=== PATIENT | female | born 1985 | race African-American/Black ===

== ENCOUNTER 2020-03-14 17:15 | Emergency (ER) | payer MEDICAID ==
--- NOTE | 2020-03-14 17:58 | ER Document Report ---
ED Medical Screen (RME) - General Chief Complaint: Bloody Stools Stated Complaint: BLOOD IN STOOLS Time Seen by Provider: 03/14/20 17:50 Mode of Arrival: Ambulatory Information source: Patient Notes: 34-year-old female presents to ED for complaint of bloody stools at home this afternoon. She states that in August 2016 they had to put a clip on 1 of the arteries of her colon. They said that the artery had ruptured so they had to put a clip on it. They state the reason the operatively ruptured was because she has been taking too much Tylenol and ibuprofen. She is now 21 weeks 3 days with her first child. She is high risk due to this clip on her:. According to the patient and the baby's father there was dark red blood that dripped and was in the stool. She states she is not having any pain or any discomfort at this time. She does have high blood pressure and sleep apnea. She states she does not smoke cigarettes or use alcohol and but she does use marijuana. She is alert oriented respirations regular nonlabored speaking in full sentences. She is very morbidly obese at 136.8 kg and a BMI of 58.9. I have greeted and performed a rapid initial assessment of this patient. A comprehensive ED assessment and evaluation of the patient, analysis of test results and completion of medical decision making process will be conducted by an additional ED providers. Physical Exam - Vital signs Vitals: Temp Pulse Resp BP Pulse Ox 98.8 F 95 20 174/84 H 99 03/14/20 17:22 03/14/20 17:22 03/14/20 17:22 03/14/20 17:22 03/14/20 17:22 Course - Vital Signs Vital signs: Temp Pulse Resp BP Pulse Ox 98.8 F 95 20 174/84 H 99 03/14/20 17:22 03/14/20 17:22 03/14/20 17:22 03/14/20 17:22 03/14/20 17:22
[2020-03-14 19:04] LABS: ABSOLUTE EOSINOPHILS # (AUTO) 0.1 10^3/uL (0.0-0.6); ABSOLUTE LYMPHOCYTES (AUTO) 1.4 10^3/uL (0.5-4.7); ABSOLUTE MONOCYTES (AUTO) 0.7 10^3/uL (0.1-1.4); ABSOLUTE NEUT (AUTO) 10.1 10^3/uL (1.7-8.2); BASOPHILS % (AUTO) 0.3 % (0-2); EOSINOPHILS % (AUTO) 0.9 % (0-6); HEMATOCRIT 28.4 % (36.0-47.0); LYMPHOCYTES % (AUTO) 11.2 % (13-45); MEAN CORPUSCULAR HEMOGLOBIN 22.7 pg (27.0-33.4); MEAN CORPUSCULAR HGB CONC 31.8 g/dL (32.0-36.0); MEAN CORPUSCULAR VOLUME 72 fl (80-97); MONOCYTES % (AUTO) 5.6 % (3-13); PLATELET COUNT 236 10^3/uL (150-450); RED BLOOD COUNT 3.98 10^6/uL (3.72-5.28); RED CELL DISTRIBUTION WIDTH 24.4 % (11.5-14.0); TOTAL CELLS COUNTED % (AUTO) 100 %; WHITE BLOOD COUNT 12.3 10^3/uL (4.0-10.5)
[2020-03-14 19:14] LABS: APPEARANCE,URINE SLIGHTLY-CLOUDY; BILIRUBIN,URINE NEGATIVE (NEGATIVE); COLOR,URINE YELLOW; GLUCOSE, URINE NEGATIVE (NEGATIVE); KETONES,URINE TRACE mg/dL (NEGATIVE); LEUKOCYTE ESTERASE,URINE NEGATIVE (NEGATIVE); NITRITE,URINE NEGATIVE (NEGATIVE); PROTEIN,URINE 30 mg/dL (NEGATIVE); URINE SPECIFIC GRAVITY 1.028
[2020-03-14 19:17] LABS: ALBUMIN 3.3 g/dL (3.5-5.0); ALKALINE PHOSPHATASE 78 U/L (38-126); ANION GAP 7 (5-19); ASPARTATE AMINO TRANSFERASE 17 U/L (14-36); BILIRUBIN,DIRECT 0.2 mg/dL (0.0-0.4); BILIRUBIN,TOTAL 0.2 mg/dL (0.2-1.3); BLOOD UREA NITROGEN 13 mg/dL (7-20); CALCIUM 9.2 mg/dL (8.4-10.2); CARBON DIOXIDE 22 mmol/L (22-30); CHLORIDE 104 mmol/L (98-107); GLUCOSE 104 mg/dL (75-110); POTASSIUM 4.6 mmol/L (3.6-5.0); TOTAL PROTEIN 6.4 g/dL (6.3-8.2)
[2020-03-14 19:24] LABS: ANISOCYTOSIS 3+; HYPOCHROMASIA 1+; OVALOCYTES SLIGHT; PLATELET COMMENT ADEQUATE; POIKILOCYTOSIS SLIGHT
--- NOTE | 2020-03-14 21:33 | ER Document Report ---
ED General - General Chief Complaint: Bloody Stools Stated Complaint: BLOOD IN STOOLS Time Seen by Provider: 03/14/20 17:50 Mode of Arrival: Ambulatory Notes: 34-year-old female G1, P0 approximately 21 weeks gestational age history of hypertension hyperlipidemia morbid obesity and prior lower GI bleed presents with approximately 3 episodes of bright red blood per rectum prior to arrival over the last several hours. Patient says that she has similar episode approximately 3 years ago and had lower endoscopy at outside hospital and was found to have a "bleeding blood vessel "which was surgically clipped. Patient has not had any episodes since then. Patient says that this was attributed to NSAID use. Patient felt mildly lightheaded when symptoms began but this has resolved. Patient has been seeing several OB/GYNs and is [facility] and with Dr. Sims (sp?) for her current . Patient takes ASA 81 daily, denies any other antiplatelet or anticoagulation. Patient denies any syncope, melena, vomiting/hematemesis, abdominal pain, trauma, fever, complications, vaginal bleeding - Related Data Allergies/Adverse Reactions: No Known Allergies Allergy (Verified 03/14/20 18:00) Past Medical History - General Information source: Patient - Social History Smoking Status: Never Smoker Chew tobacco use (# tins/day): No Frequency of alcohol use: None Drug Abuse: Marijuana Family History: Reviewed & Not Pertinent Patient has homicidal ideation: No - Past Medical History Cardiac Medical History: Reports: Hx Hypertension Past Surgical History: Reports: Hx Abdominal Surgery - gi clip in colon in 2017 Review of Systems - Review of Systems Notes: REVIEW OF SYSTEMS: CONSTITUTIONAL : Denies fever, chills, or sweats. EENT: Denies recent cold/sinus symptoms, denies throat pain CARDIOVASCULAR: Denies chest pain, DIALLO RESPIRATORY: Denies cough, denies shortness of breath. GASTROINTESTINAL: Denies abdominal pain, nausea/vomiting. GENITOURINARY: Denies difficulty urinating, painful urination. FEMALE GENITOURINARY: Denies abnormal vaginal bleeding, vaginal discharge. MUSCULOSKELETAL: Denies neck pain, back pain. SKIN: Denies rash or skin lesions. HEMATOLOGIC : Denies easy bruising or bleeding. LYMPHATIC: Denies swollen, enlarged glands. NEUROLOGICAL: Denies headache, denies change in gait. PSYCHIATRIC: Denies anxiety or stress or depression. Physical Exam - Vital signs Vitals: Temp Pulse Resp BP Pulse Ox 98.8 F 95 20 174/84 H 99 03/14/20 17:22 03/14/20 17:22 03/14/20 17:22 03/14/20 17:22 03/14/20 17:22 - Notes Notes: PHYSICAL EXAMINATION: GENERAL: Obese young adult female lying in stretcher in no acute distress HEAD: Atraumatic, normocephalic. EYES: Pupils equal round and appropriate constriction, sclera anicteric, conjunctiva are normal. ENT: nares patent, moist mucous membranes. NECK: Normal range of motion, supple without lymphadenopathy LUNGS: Breath sounds clear to auscultation bilaterally and equal. No wheezes rales or rhonchi. HEART: Regular rate and rhythm without murmurs ABDOMEN: Soft, nontender, no guarding, no masses, no CVAT. bedside ultrasound with positive movement and heart tones. Rectal exam with dark red blood low volume. EXTREMITIES: Normal range of motion, no pitting or edema. No cyanosis. NEUROLOGICAL: Awake, alert, conversing appropriately, moves all extremities spontaneously. PSYCH: Normal mood, normal affect. SKIN: Warm, Dry, normal turgor, no rashes or lesions noted. Course - Re-evaluation Re-evalutation: 03/14/20 21:44 patient presents with lower GI bleeding, and had approximately 500 normal stool in the ED but otherwise has been stable, one episode of bright red blood per rectum for 4 hours of being in the ED so far. Discussed with Dr. Corral who says that he is likely to observe patient and will be available to scope if patient becomes unstable. Discussed this with Dr. Johns who is accepted patient to medical floor. 03/14/20 23:32 Pt now having additional episodes of brbpr, BP dropped, Dr. Corral says pt needs transfer, have called [facility] who say they have no capability to take care of this patient, have called [facility] and am waiting for call back, have also called [facility] and am waiting for response. Requested that nurse transfuse 2U PRBCs uncrossed and set up for introducer catheter 03/14/20 23:39 Patient accepted by ICU iron carrier Dr[facility]. Blood pressure has improved. 03/15/20 02:43 Patient had several more episodes of bloody stool in ED, was given 2 units of uncrossed matched blood, repeated and all vitals remained stable, attempted once to do right IJ introducer but unable to obtain access secondary to extreme variable location of IJ with patient respiration and patient habitus and did not reattempt as patient was going to be transported to [facility] and [facility] and vital signs remained stable. Patient picked up by ALS cranial and remained appropriate for transport with stable vitals. - Vital Signs Vital signs: Temp Pulse Resp BP Pulse Ox 97.7 F 75 24 H 113/61 100 03/15/20 02:03 03/15/20 02:01 03/15/20 02:10 03/15/20 02:10 03/15/20 02:10 - Laboratory Result Diagrams: 03/14/20 18:35 03/14/20 18:35 Laboratory results interpreted by me: 03/14/20 03/14/20 03/14/20 18:35 18:35 18:35 WBC 12.3 H Hgb 9.0 L Hct 28.4 L MCV 72 L MCH 22.7 L MCHC 31.8 L RDW 24.4 H Lymph % (Auto) 11.2 L Absolute Neuts (auto) 10.1 H Seg Neutrophils % 82.0 H Sodium 133.3 L Albumin 3.3 L Urine Protein Urine Ketones Urine Urobilinogen Crossmatch See Detail 03/14/20 18:35 WBC Hgb Hct MCV MCH MCHC RDW Lymph % (Auto) Absolute Neuts (auto) Seg Neutrophils % Sodium Albumin Urine Protein 30 H Urine Ketones TRACE H Urine Urobilinogen 2.0 H Crossmatch Critical Care Note - Critical Care Note Total time excluding time spent on procedures (mins): 35 - Time spent repeatedly reassessing patient with large volume GI bleed accepted to outside ICU Discharge - Discharge Clinical Impression: Lower GI bleed Qualifiers: Weeks of gestation: 21 weeks Qualified Code(s): Z3A.21 - 21 weeks gestation of Disposition: [employer]
[2020-03-14] MEDS ORDERED: PANTOPRAZOLE SODIUM 40 MG VIAL IV ONE ×2 (22:41→22:51)
[2020-03-14] MEDS ORDERED: NORMAL SALINE 1000 ML 1,000 ML IV ONE (22:45)
[2020-03-15] MEDS ORDERED: NORMAL SALINE 250 ML IV PRN ×3 (01:30→01:31)
[2020-03-15 02:18] VITALS: BP 113/61
== END 2020-03-15 02:38 | disposition short-term general hospital (02) ==
LOC: ER 17:15 → EH 21:59 → UNDOADMIN 21:59 → UNDODISIN 03-15 02:38
DX: O99.612 Diseases of the digestive system complicating pregnancy, second trimester (principal); K62.5 Hemorrhage of anus and rectum; O99.322 Drug use complicating pregnancy, second trimester; F12.10 Cannabis abuse, uncomplicated; O16.2 Unspecified maternal hypertension, second trimester; O99.212 Obesity complicating pregnancy, second trimester; E66.9 Obesity, unspecified; Z79.82 Long term (current) use of aspirin; Z98.890 Other specified postprocedural states; Z3A.21 21 weeks gestation of pregnancy
CPT/HCPCS: 99285; 86900; 86901; 36415; 36430; 86850; 85025; 82270; 80053; 81001; 86920; P9016; C9113; J7030

== ENCOUNTER 2020-05-14 15:35 | Outpatient (CLI) | payer MEDICAID ==
--- OUTSIDE RECORDS SUMMARY | 2020-05-14 15:39 | XMS REPORT ---
:1985 [facility] [address] [place] [address] Care Team Providers Name Role Phone UNASSIGNED, DOCTOR Primary Care Physician Unavailable Gold Isaac MD Attending Clinician Unavailable EVERETT MARINELLI Attending Clinician Unavailable TRESSA HODGES Attending Clinician Unavailable Hector Attending Clinician Unavailable TRESSA HODGES Admitting Clinician Unavailable Allergies, Adverse Reactions, Alerts This patient has no known allergies or adverse reactions. Medications Ordered Filled Start Stop Current Ordering Indication Dosage Frequency Signature Comments Components Medication Medication Date Date Medication? Clinician (SIG) Name Name polyethylen 2020- Yes 17g QD 17 g e glycol 03-19 (0.165 (GLYCOLAX) 10:00: 09:59 g/kg), packet 17 g 00 :00 Oral, DAILY, First dose on Wed03/19/20 at 1000, For 365 days
Us e for Miralax. 17 grams = 1 packet.&nb sp; M ix in 8 ounces of juice or water.
bisacodyL 2020- Yes 10mg Q1D 10 mg, Per (DULCOLAX) 03-19 Rectum, suppository 09:05: 09:04 DAILY 10 mg 12 :12 NEEDED, Constipati on, Starting Wed03/19/20 at 0905, For 365 days pantoprazol 2020- Yes 40mg Q.5D 40 mg, e 03-18 Oral, (PROTONIX) 18:00: 17:59 EVERY 12 EC tablet 00 :00 HOURS 40 mg (0600, 1800), First dose on Wed03/18/20 at 1800, For 365 days
Do NOT crush, break, or chew. Take on an empty stomach at least 30 minutes before food.
docusate 2020- Yes 100mg Q.5D 100 mg, sodium 03-18 Oral, (COLACE) 11:50: 09:59 TWICE A capsule 100 00 :00 DAY, First mg dose on 03/18/20 at 1150, For 365 days diphenhydrA 2019- No 25mg 25 mg, MINE 03-17 Oral, (BENADRYL) 19:50: 21:08 ONCE, Sun capsule 25 00 :00 03/17/20 at mg 1950, For 1 dose
Fa ll Risk Medication
acetaminoph 2019- No 650mg 650 mg, en 03-17 Oral, (TYLENOL) 19:50: 21:08 ONCE, Sun tablet 650 00 :00 03/17/20 at mg 1950, For 1 dose NIFEdipine 2020- Yes 30mg QD 30 mg, XL 03-16 Oral, (PROCARDIA 10:00: 09:59 DAILY, XL) 24 hr 00 :00 First dose tablet 30 on Sat mg 03/16/20 at 1000, For 365 days
Us e for Procardia XL.&nb sp; D o NOT crush, break, or chew.
labetaloL 2019- Yes 400mg [id number] 400 mg, (NORMODYNE) 03-16 [id number] Oral, tablet 400 10:00: 13:59 3D EVERY 8 mg 00 :00 HOURS, First dose (after last modificati on) on 03/16/20 at 1000, For 30 days PNV with 2020- Yes 1{tbl} 1 Tab, calcium 03-16 Oral, WITH no.72-iron- 08:40: 07:59 BREAKFAST, FA 27 mg 00 :00 First dose iron- 1 mg on Sat per tablet 03/16/20 at 1 Tab 0840, For 365 days magnesium 2019- No 800mg 800 mg, oxide 03-16 Oral, (MAG-OX) 07:40: 07:45 ONCE, Sat tablet 800 00 :00 03/16/20 at mg 0740, For 1 dose calcium 2020-0 2020- No 1g 1 g, gluc in 03-16 Intravenou NaCL, 06:40: 08:05 s, at 150 iso-osm 1 00 :00 mL/hr, gram/50 mL Administer infusion over 20 (premix) 1 Minutes, g ONCE, 03/16/20 at 0640, For 1 dose
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 over at least 20 minutes.<b r> dexmedetomi 2019-0 2020- No CONTINUOUS dine HCl 03-16 PRN, (PRECEDEX) 00:20: 00:32 Starting 100 mcg/mL 00 :34 Sat 200 mcg in 03/16/20 at sodium 0020, chloride Intra-op 0.9 % 48 mL ANES infusion sugammadex 2019- 2020- No Q1D Intravenou (BRIDION) 03-16 s, 100 mg/mL 00:13: 00:32 NEEDED, injection 00 :34 Starting 03/16/20 at 0013, Intra-op lactated 2019-0 2020- No 125mL/h 125 mL/hr, Ringer's 03-16 Intravenou infusion 00:05: 09:26 s, at 125 00 :12 mL/hr, CONTINUOUS , Starting 03/16/20 at 0005, For 30 days, PACU sodium 2019-0 2020- No Q1D NEEDED, bicarbonate 03-15 Starting 8.4 % (1 23:54: 00:32 Fri mEq/mL) 00 :34 03/15/20 at injection 2354, Intra-op rocuronium 2019-0 2020- No Q1D Intravenou (ZEMURON) 03-15 s, injection 23:36: 00:32 NEEDED, 00 :34 Starting 03/15/20 at 2336, Intra-op ePHEDrine 2019-0 2020- No Q1D Intravenou sulfate-0.9 03-15 s, %NaCl(PF) 23:29: 00:32 NEEDED, 25 mg/5 mL 00 :34 Starting (5 mg/mL) Fri bolus 03/15/20 at injection 2329, Intra-op fentaNYL 2019-0 2020- No Q1D Intravenou (SUBLIMAZE) 03-15 s, injection 23:21: 00:32 NEEDED, 00 :34 Starting 03/15/20 at 2321, Intra-op phenylephri 2019-0 2020- No Q1D Intravenou ne HCl in 03-15 s, 0.9% NaCl 1 23:01: 00:32 NEEDED, mg/10 mL 00 :34 Starting (100 Fri mcg/mL) 03/15/20 at bolus 2301, injection Intra-op lidocaine 2019- 2020- No Q1D Intravenou PF 03-15 s, (XYLOCAINE) 22:57: 00:32 NEEDED, 20 mg/mL (2 00 :34 Starting %) Fri injection 03/15/20 at 2257, Intra-op succinylcho 2019- 2020- No Q1D Intravenou line-sod 03-15 s, Cl,iso(PF) 22:57: 00:32 NEEDED, 200 mg/10 00 :34 Starting mL (20 Fri mg/mL) 03/15/20 at syringe 2257, Intra-op propofol 10 2019- No Q1D Intravenou mg/mL 03-15 s, (DIPRIVAN) 22:57: 00:32 NEEDED, bolus 00 :34 Starting injection 03/15/20 at 2257, Intra-op etomidate 2019- 2020- No Q1D NEEDED, (AMIDATE) 03-15 Starting injection 22:50: 00:32 Fri 00 :34 03/15/20 at 2250, Intra-op methylPREDN 2019- No 125mg 125 mg ISolone sod 03-15 (1.09 suc(PF) 22:30: 04:44 mg/kg), (SOLU-MEDRO 00 :00 Intravenou L) 125 mg/2 s, ONCE, mL Fri injection 03/15/20 at 125 mg 2230, For 1 dose diphenhydrA 2020- No 25mg 25 mg, MINE 03-15 Intravenou (BENADRYL) 22:30: 22:44 s, ONCE, injection 00 :00 Fri 25 mg 03/15/20 at 2230, For 1 dose
Fa ll Risk Medication . Do NOT exceed 25 mg/minute.
sodium 2019- 2020- No 30mL 30 mL, citrate-cit 03-15 Oral, ANES gail acid 22:20: 22:35 ONCE, Fri (BICITRA) 00 :00 03/15/20 at solution 30 2220, For mL 1 dose, Pre-Op
Same as Shohl's Solution. May dilute with 30 to 90 ml of water prior to administra tion.
famotidine No 20mg 20 mg (PEPCID) 03-15 (0.175 injection 22:20: 22:37 mg/kg), 20 mg 00 :00 Intravenou s, Administer over 2 Minutes, ANES ONCE, Wed03/15/20 at 2220, For 1 dose, Pre-Op
Dilute in 5 mL of 0.9% sodium chloride and give over 2 minutes.<b r> midazolam No 2mg 2 mg (PF) 03-15 (0.0175 (VERSED) 22:20: 22:35 mg/kg), injection 2 00 :00 Intravenou mg s, ANES ONCE, Wed03/15/20 at 2220, For 1 dose, Pre-Op
For patients 70 years of age and older, consider reduced dose of 0.5 mg
ondansetron No 4mg 4 mg (ZOFRAN) 03-15 (0.035 injection 4 18:55: 18:55 mg/kg), mg 00 :00 Intravenou s, ONCE, Wed03/15/20 at 1855, For 1 dose
Do ses 4 mg or less can be administer ed IV push over 3-5 minutes.&n bsp; Doses over 4 mg should be diluted and infused over 15 minutes.&n bsp; &nbs p;
ondansetron No 4mg 4 mg (ZOFRAN) 03-15 (0.035 injection 4 18:55: 18:55 mg/kg), mg 00 :00 Intravenou s, ONCE, Wed03/15/20 at 1855, For 1 dose
Do ses 4 mg or less can be administer ed IV push over 3-5 minutes.&n bsp; Doses over 4 mg should be diluted and infused over 15 minutes.&n bsp; &nbs p;
ondansetron 2019- No Starting (ZOFRAN) 4 03-15 Fri mg/2 mL 18:53: 18:55 03/15/20 at injection 08 :00 1853, For - Pyxis 1 Override dose
Cr Pull eated by cabinet override<b r> sodium 2019- No 500mL 500 mL chloride 03-15 (4.37 0.9 % bolus 17:25: 17:55 mL/kg), 500 mL 00 :00 Intravenou s, Administer over 30 Minutes, ONCE, Wed03/15/20 at 1725, For 1 dose polyethylen 2019- No 2000mL 2,000 mL, e 03-15 Oral, glycol-elec 14:05: 15:12 ONCE, Wed trolytes 00 :00 03/15/20 at (NULYTELY) 1405, For solution 1 2,000 mL dose
OR AL: 240 mL every 10 minutes until 4 liters are consumed or until the rectal effluent is clear&nbsp ;N-30 mL/min (1.2-1.8 liters/hr) until 4 liters are consumed or until the rectal effluent is clear.&nbs p;DO NOT EXCEED 1.8 liters/hr. Can administer as tolerated.
magnesium 2019- No 2g 2 g, sulfate in 03-15 Intravenou SWI 2 09:55: 16:07 s, at 8.3 gram/50 mL 00 :00 mL/hr, IVPB Administer (premix) 2 over 6 g Hours, ONCE, Wed03/15/20 at 0955, For 1 dose<br&gt ;Recommend ed for serum magnesium 1 to 1.5 mg/dL
labetaloL 2019- Yes 10mg Q6H 10 mg, (NORMODYNE; 03-15 Intravenou TRANDATE) 08:50: 07:11 s, EVERY 6 injection 32 :15 HOURS 10 mg NEEDED, Elevated BP, Starting Wed03/15/20 at 0850, For 718 hours
M aximum of 300 mg in 24 hours.&nbs p;For PRN use: maintain SBP less than 160 mmHg<br&gt ; pantoprazol No 40mg Q.5D 40 mg, e 03-15 Intravenou (PROTONIX) 04:25: 12:36 s, TWICE A injection 00 :58 DAY, First 40 mg dose on Wed03/15/20 at 0425, For 365 days
Di lute with 10 mL of 0.9 % Sodium Chloride for Injection and administer over 2 minutes.<b r> Iron/Folic 2017- No Rico 1 Twice A Ac/Vit 08-06 Armani Bermudez Day Bcomp,C/Min 00:00: 00:00 (Hematinic- 00 :00 Vitamin-Min eral Tab) 1 Each Tablet Omeprazole No Rico 20 Daily (Prilosec) 08-06 Armani Bermudez 20 Mg 00:00: 00:00 Capsule.dr 00 :00 Metoprolol No Rico 25 Every 12 Tartrate 08-06 Armani Bermudez Hours (Lopressor) 00:00: 00:00 25 Mg 00 :00 Tablet Medications No Medication not s not documented documented Medications No Medication not s not documented documented labetaloL Yes 300mg Q.5D Take 300 (NORMODYNE) mg by 300 mg Oral mouth Tablet twice a day. NIFEdipine Yes 30mg QD Take 30 mg XL by mouth (PROCARDIA daily. XL) 30 mg Oral Tablet Extended Rel 24 hr (2) ferrous Yes 240mg QD Take 240 gluconate mg by (FERGON) mouth 240 mg (27 daily. mg iron) Oral Tablet Yes 1{tbl} QD Take 1 Tab vit by mouth calc,iron,f daily. olic (PRENAT.VIT S,DIMITRI,MIN-I TROY-FOLIC ORAL) aspirin 81 2019- No 81mg QD Take 81 mg mg Oral 03-19 by mouth Tablet, 00:00 daily. Delayed :00 Release (E.C.) Problems Condition Condition Condition Status Onset Resolution Last Treatin g Comments Name Details Category Date Date Treatment Clinician Date Anemia Anemia [id number] Active 03-15 00:00: 00 ODETTE ODETTE [id number] Active (obstructiv (obstructiv 03-15 e sleep e sleep 00:00: apnea) apnea) 00 21 weeks 21 weeks [id number] Active gestation gestation 911 of 00:00: 00 Poor venous Poor venous Problem Resolve access access d 2 07:55: 00 Elevated Elevated Problem Active troponin troponin -29 level 17:16: 00 Gastrointes Gastrointes Problem Resolve tinal tinal d 08-02 hemorrhage bleeding 00:12: 00 Anemia Profound Problem Resolve anemia d 08-02 00:12: 00 Vomiting Vomiting Problem Resolve and and d 08-01 diarrhea diarrhea 22:50: 00 Disease Active Condition medical history not documented GI bleed GI bleed [id number] Resolve 2020-03-19 2020-03-19 d 03-15 00:00:00 14:53:23 00:00: 00 Procedures Procedure Date / Time Performed Performing Clinician Devic e EKG 2020-04-22 00:00:00 HEMOGLOBIN 2020-03-19 14:14:00 Shoshana Washington HEMATOCRIT 2020-03-19 14:14:00 Shoshana Washington CBC WITH DIFFERENTIAL 2020-03-19 05:30:00 OmadjPaige de la fuente CBC WITH DIFFERENTIAL 2020-03-19 05:30:00 OmadjPagie de la fuente Jessica HEMOGLOBIN 2020-03-19 05:30:00 Shoshana Washington HEMATOCRIT 2020-03-19 05:30:00 Shoshana Washington EKGSCAN 2020-03-19 00:00:00 Unassigned, Doctor HEMOGLOBIN 2020-03-18 20:52:00 Shoshana Washington HEMATOCRIT 2020-03-18 20:52:00 Shoshana Washington HEMOGLOBIN 2020-03-18 10:46:00 Deysi Washingtoni HEMATOCRIT 2020-03-18 10:46:00 Shoshana Washington CBC WITH DIFFERENTIAL 2020-03-18 01:56:00 StillKyle CBC WITH DIFFERENTIAL 2020-03-18 01:56:00 Kyle Lowery CBC REFLEX LAB ONLY ORDER 2020-03-18 01:56:00 StillKyle PHOSPHORUS 2020-03-18 01:55:00 StillKyle MAGNESIUM 2020-03-18 01:55:00 Kyle Lowery BASIC METABOLIC PANEL 2020-03-18 01:55:00 Still, Kyle Richard NURSING-TRANSFUSE RED BLOOD 2020-03-18 00:14:35 Bria Mcqueen CELLS (PATIENT WT > 30KG) EKGSCAN 2020-03-18 00:00:00 Unassigned, Doctor RED BLOOD CELLS (SET-UP) 2020-03-17 18:36:54 Bria Mcqueen (PATIENT WT > 30KG) HEMOGLOBIN 2020-03-17 16:27:00 Delvadia, Chau HEMATOCRIT 2020-03-17 16:27:00 Chau Mullen CBC WITH DIFFERENTIAL 2020-03-17 04:48:00 Still, Kyle Richard CBC WITH DIFFERENTIAL 2020-03-17 04:48:00 Still, Kyle Richard CBC REFLEX LAB ONLY ORDER 2020-03-17 04:48:00 Still, Kyle Ricahrd PHOSPHORUS 2020-03-17 04:48:00 Still, Kyle Richard MAGNESIUM 2020-03-17 04:48:00 Still, Kyle Richard BASIC METABOLIC PANEL 2020-03-17 04:48:00 Still, Kyle Richard FRESH FROZEN PLASMA (SET-UP) 2020-03-17 01:00:00 Still, Kyle Quinones id (PATIENT WT > 30 KG) PLATELETS (SET-UP), (PATIENT WT 2020-03-17 01:00:00 Still, Kyle Richard > 30KG) HEMOGLOBIN 2020-03-17 00:35:00 Still, Kyle Richard HEMATOCRIT 2020-03-17 00:35:00 Still, Kyle Richard HEMOGLOBIN 2020-03-16 18:15:00 Still, Kyle Richard HEMATOCRIT 2020-03-16 18:15:00 Still, Kyle Richard HEMOGLOBIN 2020-03-16 14:46:00 Still, Kyle Richard HEMATOCRIT 2020-03-16 14:46:00 Still, Kyle Richard CALCIUM, IONIZED, WHOLE BLOOD 2020-03-16 08:23:00 Shoshana Washington HEMOGLOBIN 2020-03-16 08:23:00 Felix, Shoshana HEMATOCRIT 2020-03-16 08:23:00 Shoshana Washington PROTEIN/CREATININE RATIO, URINE 2020-03-16 08:16:00 Still, Kyle Richard CBC WITH DIFFERENTIAL 2020-03-16 04:26:00 Still, Kyle Richard CBC WITH DIFFERENTIAL 2020-03-16 04:26:00 Still, Kyle Richard CBC REFLEX LAB ONLY ORDER 2020-03-16 04:26:00 Still Kyle Richard PHOSPHORUS 2020-03-16 04:25:00 Still Kyle Richard MAGNESIUM 2020-03-16 04:25:00 StillKyle BASIC METABOLIC PANEL 2020-03-16 04:25:00 StillKyle ANESTHESIA INTUBATION 2020-03-15 23:50:16 Lupe Alexander ANESTHESIA ARTERIAL LINE 2020-03-15 23:47:48 Lupe Alexander PLACEMENT OR PANEL, ARTERIAL 2020-03-15 23:47:00 Kyle Esparza NURSING-TRANSFUSE FRESH FROZEN 2020-03-15 23:34:03 Senthil Alexander PLASMA (PATIENT WT > 30KG) NURSING-TRANSFUSE RED BLOOD 2020-03-15 23:23:20 Lupe Alexander CELLS (PATIENT WT > 30KG) OR PANEL, ARTERIAL 2020-03-15 23:19:00 Kyle Esparza NURSING-TRANSFUSE RED BLOOD 2020-03-15 23:08:52 Lupe Alexander CELLS (PATIENT WT > 30KG) NURSING-TRANSFUSE RED BLOOD 2020-03-15 23:00:32 Lupe Alexander CELLS (PATIENT WT > 30KG) RED BLOOD CELLS (SET-UP) 2020-03-15 22:33:05 Wanda Ho (PATIENT WT > 30KG) Jarrod NURSING-TRANSFUSE FRESH FROZEN 2020-03-15 22:31:32 Kyle Lowery PLASMA (PATIENT WT > 30KG) HEMOGLOBIN 2020-03-15 21:19:00 Shoshana Washington HEMATOCRIT 2020-03-15 21:19:00 Shoshana Washington PT (PROTHROMBIN TIME) WITH INR 2020-03-15 21:19:00 Deysi Washington i COVID-19 STAT ([facility]) 2020-03-15 19:44:00 Kyle Lowery NURSING-TRANSFUSE PLATELETS 2020-03-15 19:42:28 Kyle Lowery (PATIENT WT > 30KG) XRAY CHEST 1 VIEW 2020-03-15 19:04:27 Shoshana Washington NURSING-TRANSFUSE RED BLOOD 2020-03-15 18:17:20 Kyle Lowery CELLS (PATIENT WT > 30KG) NURSING-TRANSFUSE RED BLOOD 2020-03-15 17:58:29 Kyle Lowery CELLS (PATIENT WT > 30KG) RED BLOOD CELLS (SET-UP) 2020-03-15 17:01:23 Kyle Lowery (PATIENT WT > 30KG) COMPREHENSIVE METABOLIC PANEL 2020-03-15 15:51:00 Aurea Garland HEMOGLOBIN 2020-03-15 15:51:00 Kyle Lowery HEMATOCRIT 2020-03-15 15:51:00 Kyle Lowery NURSING-TRANSFUSE RED BLOOD 2020-03-15 14:57:14 StillKylekatie blue CELLS (PATIENT WT > 30KG) NURSING-TRANSFUSE RED BLOOD 2020-03-15 11:36:11 StillKyle mirza CELLS (PATIENT WT > 30KG) XRAY CHEST 1 VIEW 2020-03-15 11:01:50 Kyle Lowery RED BLOOD CELLS (SET-UP) 2020-03-15 09:16:44 Aurea Garland (PATIENT WT > 30KG) TEG BASELINE 2020-03-15 05:12:00 Aurea Garland CBC WITH DIFFERENTIAL 2020-03-15 04:31:00 Derbal, Ouassim CBC WITH DIFFERENTIAL 2020-03-15 04:31:00 Derbal, Ouassim CBC REFLEX LAB ONLY ORDER 2020-03-15 04:31:00 Derbal, Ouassim COMPREHENSIVE METABOLIC PANEL 2020-03-15 04:31:00 Derbal, Ouassi m PHOSPHORUS 2020-03-15 04:31:00 Derbal, Ouassim LD (LDH) 2020-03-15 04:31:00 StillKyle MAGNESIUM 2020-03-15 04:31:00 Derbal, Ouassim PT (PROTHROMBIN TIME) WITH INR 2020-03-15 04:31:00 Derbal, Ouass im PTT 2020-03-15 04:31:00 Derbal, Ouassim D-DIMER 2020-03-15 04:31:00 Derbal, Ouassim TYPE & SCREEN 2020-03-15 04:30:00 Aurea Garland OFFICE/OUTPATIENT VISIT EST 2020-02-26 13:30:00 OFFICE/OUTPATIENT VISIT EST 2020-02-07 15:45:00 OFFICE/OUTPATIENT VISIT NEW 2019-12-22 11:15:00 Portable x-ray of chest, AP 2017-08-06 00:00:00 CORNELIUS ADAIR EGD 2017-08-04 00:00:00 SARACINO FACP FACG, (esophagogastroduodenoscopy) YAN EGD 2017-08-03 00:00:00 SARACINO FACP FACG, (esophagogastroduodenoscopy) YAN Complete two dimensional 2017-08-02 00:00:00 HEYDI BERNABE RE echocardiography EKG (electrocardiogram) 2017-08-01 00:00:00 ARLINE BRUCE Portable x-ray of chest, AP 2017-08-01 00:00:00 AMELIA BRUCE W view Results Test Description Test Time Test Comments Text Results Atomic Results Result Comments HEMATOCRIT 2020-03-19 14:53:00 Test Item Value Reference Range Comments Hematocrit (test code = 4544-3) 25.8 % 35-47 Lab Interpretation (test code = 95938-3) Abnormal [id number] 14:53:00 Test Item Value Reference Range Comments Hemoglobin (test code = 718-7) 8.2 g/dL 12-16 Lab Interpretation (test code = 18895-2) Abnormal CBC WITH [id number] 12:44:00 Test Item Value Reference Range Comments WBC (White Blood Cell Count) (test code = 12.10 k/uL 4.50 - 11.00 k/uL 6690-2) RBC (Red Blood Cell Count) (test code = 2.87 M/uL 3.80 - 5 .20 M/uL 789-8) Hemoglobin (test code = 718-7) 8.1 g/dL 12-16 Hematocrit (test code = 4544-3) 25.5 % 35-47 MCV (Mean Corpuscular Volume) (test code = 87.9 fL 80-10 0 787-2) MCH (Mean Corpuscular Hemoglobin) (test code 28.2 pg 26- 34 = 785-6) MCHC (Mean Corpuscular Hemoglobin 31.8 g/dL 32-36 Concentration) (test code = 786-4) RDW (Red Cell Distribution Width) (test code 16.6 % 11. 5-14.5 = 788-0) Platelet Count (test code = 777-3) 149 k/uL 150 - 440 k/u L MPV (Mean Platelet Volume) (test code = 11.5 fL 7.4-10.6 76647-0) Nucleated RBC (test code = 68014-6) 0.3 /100 WBC 0 /100 WBC Absolute Nucleated RBC (#) (test code = 0.04 k/uL 0 k/uL 771-6) Neutrophils (%) (test code = 76979-5) 70 % Lymphocytes (%) (test code = 736-9) 20 % Monocytes (%) (test code = 5905-5) 7 % Eosinophils (%) (test code = 713-8) 2 % Basophils (%) (test code = 706-2) 0 % Immature Granulocytes (%) (test code = 1 % 51817-3) Absolute Neutrophils (#) (test code = 8.34 k/uL 1.80 - 7.7 0 k/uL 80537-0) Absolute Lymphocytes (#) (test code = 731-0) 2.46 k/uL 1.0 0 - 4.80 k/uL Absolute Monocytes (#) (test code = 742-7) 0.87 k/uL 0.00 - 0.80 k/uL Absolute Eosinophils (#) (test code = 711-2) 0.26 k/uL 0.0 0 - 0.50 k/uL Absolute Basophils (#) (test code = 704-7) 0.03 k/uL 0.00 - 0.20 k/uL Absolute Immature Granulocytes (#) (test code 0.14 k/uL 0 k/uL = 84434-0) Lab Interpretation (test code = 06390-9) Abnormal BASIC METABOLIC [id number] 02:56:00 Test Item Value Reference Range Comments BUN (test code = 3094-0) 13 mg/dL 7-19 Sodium (test code = 2951-2) 137 mEq/L 136 - 145 mEq/L Potassium (test code = 2823-3) 4.0 mEq/L 3.4 - 4.4 mEq/L Chloride (test code = 2075-0) 109 mEq/L 98 - 107 mEq/L CO2 (test code = 8-9) 21 mEq/L 22 - 29 mEq/L Anion Gap (test code = 39439-7) 7 mEq/L 4 - 12 mEq/L Glucose (test code = 2345-7) 83 mg/dL 70-105 Creatinine (test code = 2160-0) 0.75 mg/dL 0.57-1.11 Glomerular Filtration Rate (test code 121 mL/Min/1.73 m2 >=59 mL /Min/1.73 m2 = 86226-2) Calcium (test code = 87715-3) 7.9 mg/dL 8.4-10.2 Osmo (Calc'd) (test code = 57512-9) 284 mOsm/kg mOsm/kg Bun:Creat Ratio (test code = 3097-3) 17.33 Lab Interpretation (test code = Abnormal 15977-9) [id number] 02:56:00 Test Item Value Reference Range Comments Magnesium (test code = 62923-1) 1.9 mg/dL 1.6-2.6 Lab Interpretation (test code = 18364-8) Normal [id number] 02:56:00 Test Item Value Reference Range Comments Phosphorus (test code = 2777-1) 3.7 mg/dL 2.3-4.7 Lab Interpretation (test code = 84216-2) Normal RED BLOOD CELLS (SET-UP) (PATIENT WT > 30KG)2020-03-17 18:36:54 Test Item Value Reference Range Comments PRODUCT CODE (test code = 02026707891) Q1040S60 UNIT NUMBER (test code = 04452432859) [id number] BLOOD TYPE, ABO (test code = 83172304745) O BLOOD TYPE, RH (test code = 83368587189) POS CROSSMATCH STATUS (test code = 44600420508) Compatible UNIT STATUS (test code = 00282462319) PT EXPIRATION (test code = 92887873258) [id number] BLOOD TYPE BARCODE (test code = 14909621074) 5100 FRESH FROZEN PLASMA (SET-UP) (PATIENT WT > 30 KG)2020-03-17 01:00:00 Test Item Value Reference Range Comments PRODUCT CODE (test code = 39539642820) S3431G99 UNIT NUMBER (test code = 28259829456) [id number] BLOOD TYPE, ABO (test code = 89590000262) A BLOOD TYPE, RH (test code = 53667635363) POS UNIT STATUS (test code = 27116275159) PT EXPIRATION (test code = 83132920963) [id number] BLOOD TYPE BARCODE (test code = 37991808748) 6200 PLATELETS (SET-UP), (PATIENT WT > 30KG)2020-03-17 01:00:00 Test Item Value Reference Range Comments PRODUCT CODE (test code = 15870883636) [id number] UNIT NUMBER (test code = 23735643730) [id number] BLOOD TYPE, ABO (test code = 95817449039) AB BLOOD TYPE, RH (test code = 81978021649) POS UNIT STATUS (test code = 09860683545) PT EXPIRATION (test code = 19260281545) [id number] BLOOD TYPE BARCODE (test code = 85109189109) 8400 PROTEIN/CREATININE RATIO, [id number] 08:53:00 Test Item Value Reference Range Comments Urine Protein, Random (test code 31.8 mg/dL <=14.0 = 2888-6) Urine Creatinine (test code = 240.42 mg/dL Reference Range No t 2161-8) Established Urine Prot/Cr Ratio (test code = 0.1 <=0.2 2890-2) Lab Interpretation (test code = Abnormal 05338-8) CALCIUM, IONIZED, WHOLE [id number] 08:37:00 Test Item Value Reference Range Comments Ionized Calcium (test code = 71083-8) 4.4 mg/dL 4.5-5.3 Lab Interpretation (test code = 54108-2) Abnormal OR PANEL, [id number] 23:51:00 Test Item Value Reference Range Comments pH, Arterial (test code = 2744-1) 7.22 7.37-7.47 PCO2, Arterial (test code = 2018-) 47 mm Hg 31 - 42 mm H g PO2, Arterial (test code = 3-7) 314 mm Hg 80 - 90 mm Hg Bicarbonate (HCO3), Arterial (test 18 mmol/L 20-25 code = 2025-3) O2 Saturation, Arterial (test code = 100 % 94-97 8-6) Base Excess, Arterial (test code = -7.8 mmol/L -3-3 1924-7) a/A Ratio (test code = 92817-1) 0.47 >=0.80 O2 Therapy, Percent (FIO2 %) (test 100 % code = 3150-0) Sodium (test code = 2951-2) 134 mEq/L 135 - 145 mEq/L Potassium (test code = 2823-3) 4.7 mEq/L 3.4 - 4.4 mEq/L Chloride (test code = 2075-0) 112 mEq/L 96 - 108 mEq/L Glucose (test code = 2345-7) 157 mg/dL 70-105 Ionized Calcium (test code = 4.4 mg/dL 4.5-5.3 57038-8) Hemoglobin (test code = 718-7) 9.4 g/dL 12-16 P erformed in OR Lab. Hematocrit (test code = 88675-5) 27.6 % 35-47 Calculated Result Lab Interpretation (test code = Abnormal 04616-2) [id number] 23:50:16SLupe guallpa CRNA 03/15/2020 11:50 PMAirway General Information:Date/Time: 03/15/2020 10:57PM Indications and Patient ConditionPatient position: sniffingSpecial conditions: rapid sequence serge ctionAdequate mask vent: Yes Final Airway DetailsFinal airway type: endotracheal airwaySuccessful airway: standard ETTETT size (mm): 7.0Cuffed: yesSuccessful intubation technique: video laryngoscopyCormack-Lehane Classification: grade I - full view of glottisFacilitating devices/methods: cricoid pressure and intubating stylet (maintained until EtCO2 confirmed)Endotracheal tube insertion site: oralBlade: MacintoshBlade size: #3Placement verified by: chest auscultation and capnometry ETT secured at: 24 and right side lip cm.Inital cuff pressure (cm H2O): , MINIMALLY OCCLUSIVE PRESSUREEyes protected: taped closed AttemptsNumber of attempts at approach: 1 Performed by: Lupe Alexander CRNA Arterial [id number] 23:47:48Lupe Alexander CRNA 03/15/2020 11:49 PMArterial Line: Date/Time: 03/15/2020 11:00 PM Procedure Details:Patient prepped in sterile fashion, timeout performed, local skin infiltration and Seldinger technique used. A 20 gauge (size) catheter was placed into the left radialLine secured with suture,tape and Tegaderm.Events:Patient tolerated procedure well with no complications. Performed by: Lupe Alexander CRNAPT (PROTHROMBIN TIME) WITH [id number] 21:47:00 Test Item Value Reference Range Comments PT (test code = 5902-2) 12.9 seconds 10.2 - 12.9 seconds INR (test code = 6301-6) 1.1 STD The rapeutic Range 2-3 Lab Interpretation (test Normal code = 13898-9) COVID-19 STAT ( LABS)2020-03-15 21:03:00 Test Item Value Reference Range Comments [id number] PCR (test code = 95200-8) Negative Neg ative CELIA (test code = CELIA) Lab Interpretation (test code = 16199-5) Normal XRAY CHEST 1 [id number] 19:26:00Findings and impression: Decreased lung volumes. No central line identified. No pneumothorax. Mild pulmonary vascular congestion. Cardiac silhouette is enlarged which may be accentuated due to portableAP technique and decreased lung volumes. Reading Doctor: Beverley FranciscoyElectronic Signature by: Sydnee Francisco Exam: Single view of the chest.Date of exam: 03/15/2020 at 1859. Indications: . s/p cvl attempt. rule out pneumo. Comparison: 03/15/2020. Interface, Radresults_Incoming - 03/15/2020 7:29PM EDT Exam: Single view of the chest. Date of exam: 03/15/2020 at 1859. Indications: . s/p cvl attempt. rule out pneumo. Comparison: 03/15/2020. IMPRESSION Findings and impression: Decreased lung volumes. No central line identified. No pneumothorax. Mild pulmonary vascular congestion. Cardiac silhouette is enlarged which may be accentuated due to portable AP technique and decreased lung volumes. Reading Doctor: Sydnee Francisco Electronic Signature by: Rogelio FranciscoOMPREHENSIVE METABOLIC BMOFX9328-09-06 16:29:00 Test Item Value Reference Range Comments Sodium (test code = 2951-2) 133 mEq/L 136 - 145 mEq/L Potassium (test code = 2823-3) 3.9 mEq/L 3.4 - 4.4 mEq/L Chloride (test code = 2075-0) 108 mEq/L 98 - 107 mEq/L CO2 (test code = 2027-9) 15 mEq/L 22 - 29 mEq/L Calcium (test code = 37379-9) 7.5 mg/dL 8.4-10.2 Glucose (test code = 2345-7) 130 mg/dL 70-105 BUN (test code = 3094-0) 25 mg/dL 7-19 Creatinine (test code = 2160-0) 0.93 mg/dL 0.57-1.11 Glomerular Filtration Rate (test code 93 mL/Min/1.73 m2 >=59 mL/ Min/1.73 m2 = 63184-2) Protein, Total (test code = 2885-2) 4.8 g/dL 6.4-8.3 Albumin (test code = 1751-7) 2.5 g/dL 3.5-5.2 Bilirubin, Total (test code = 1975-2) 0.3 mg/dL 0.1-1.2 Alk Phosphatase (test code = 6768-6) 61 U/L 40-150 SGOT (AST) (test code = 1920-8) 13 U/L 5-34 SGPT (ALT) (test code = 1742-6) 14 U/L 0-55 Anion Gap (test code = 61803-6) 10 mEq/L 4 - 12 mEq/L Bun:Creat Ratio (test code = 3097-3) 26.88 Osmo (Calc'd) (test code = 22314-1) 283 mOsm/kg mOsm/kg Globulin (Calc'd) (test code = 2.3 g/dL 11514-5) A:G Ratio (test code = 1759-0) 1.09 Lab Interpretation (test code = Abnormal 47139-7) XRAY CHEST 1 JHZF8260-31-13 14:41:00IMPRESSION: No acute finding. Reading Doctor: Jasper Nicholas Signature by: Mumtaz Nicholas: CHEST ONE VIEW INDICATION: Failed central line placement FINDINGS: The lungs appear clear. A definite pneumothorax is not visualized on this exam. Heart and mediastinal contours are unremarkable. Interface, [facility]results_Incoming - 03/15/2020 2:44 PM EDTSTUDY: CHEST ONE VIEW INDICATION: Failed central line placement FINDINGS: The lungs appear clear. A definite pneumothorax is not visualized on this exam. Heart and mediastinal contours are unremarkable. IMPRESSION IMPRESSION: No acute finding. Reading Doctor: Duke Nicholas Electronic Signature by: Randal Nicholas (LDH)2020-03-15 09:10:00 Test Item Value Reference Range Comments Lactate Dehydrogenase (LD; LDH) (test code = 137 U/L 125 -220 66111-8) Lab Interpretation (test code = 13813-8) Normal TYPE & ZNGIJV3024-10-06 09:08:00 Test Item Value Reference Range Comments ABO GROUP (test code = 62095653339) O RH TYPE (test code = 27025659491) Positive AB SCREEN (test code = 65645063858) Negative TEG XNFQJYOO2514-95-83 06:52:00 Test Item Value Reference Range Comments R (test code = 38588-8) 3.3 minutes 5.0 - 10.0 minutes G (test code = 14474-3) 13.2 kd/sc 4.5 - 11.0 kd/sc Angle (test code = 03697-9) 76.9 degrees 53.0 - 72.0 degrees MA (test code = 24745-6) 72.6 mm 50-70 LY30 (test code = 44768-0) 0.5 % 0-8 Lab Interpretation (test code = 45880-5) Abnormal YXI0329-90-18 05:44:00 Test Item Value Reference Range Comments PTT (test code = 86658-4) 25.0 seconds 25.1 - 36.5 seconds Lab Interpretation (test code = 36971-2) Abnormal W-TROPD9033-56MIMIY3205-13-13 05:44:00 Test Item Value Reference Range Comments D-Dimer (test code = 68201-2) 382 ng/mL <500 CELIA (test code = CELIA) Lab Interpretation (test code = 49239-3) Normal Stool Vdbaacw7508-74-79 12:03:00 Test Item Value Reference Range Comments Stool bacteria identification by Organism: FURTHER INCUBATION culture (test code = 625-4) NECESSARY Aerobic Blood Vcqauvb9462-51-45 08:02:00 Test Item Value Reference Range Comments Aerobic blood culture (test code = NO GROWTH AFTER 4 DAYS 10423-7) Anaerobic Blood Xuwwaqs4406-66-54 08:02:00 Test Item Value Reference Range Comments Anaerobic blood culture (test code = NO GROWTH AFTER 4 DAYS 15818-1) White Blood Fdujj9976-00-87 05:38:00 Test Item Value Reference Range Comments Blood automated leukocyte count (test code = 6690-2) 14.2 4.8-10.8 Red Blood Gevvs5149-92-85 05:38:00 Test Item Value Reference Range Comments Blood erythrocytes count (number/volume) (test code = 3.04 4.1-5.2 47755-2) Wxbkvrcsrt1617-69-88 05:38:00 Test Item Value Reference Range Comments Blood hemoglobin measurement (mass/volume) (test code 8.9 12.0-16.0 = 718-7) Zmjltlesrm6203-85-00 05:38:00 Test Item Value Reference Range Comments Blood hematocrit (volume fraction) (test code = 26.8 37.0-47.0 40269-4) Mean Corpuscular Fhaeqy8559-39-70 05:38:00 Test Item Value Reference Range Comments Automated erythrocyte mean corpuscular volume (test 88.2 80.0-98.0 code = 787-2) Mean Corpuscular Ykbfhckfjf0011-18-87 05:38:00 Test Item Value Reference Range Comments MCH (test code = 18586-6) 29.2 27.0-32.0 Mean Corpuscular Hemoglobin Ueouewm0225-62-09 05:38:00 Test Item Value Reference Range Comments Erythrocyte mean corpuscular hemoglobin concentration 33.2 33.0-36.0 measurement (mass/volume) (test code = 71791-4) Red Cell Distribution Nwznl4896-67-94 05:38:00 Test Item Value Reference Range Comments Erythrocyte distribution width ratio (test code = 17.9 10.0-14.5 11503-8) Platelet Gozgf4785-93-12 05:38:00 Test Item Value Reference Range Comments Blood platelets count (number/volume) (test code = 881 130400 82956-7) Random Xekcofw9689-27-03 05:24:00 Test Item Value Reference Range Comments Serum or plasma glucose measurement (mass/volume) 119 74-99 (test code = 2345-7) Blood Urea Mlsjljfd7480-60-31 05:24:00 Test Item Value Reference Range Comments Serum or plasma urea nitrogen measurement 3 7-18 (mass/volume) (test code = 3094-0) Ajbrlohedi9049-44-63 05:24:00 Test Item Value Reference Range Comments Serum or plasma creatinine measurement (mass/volume) 0.76 0.60-1.30 (test code = 2160-0) BUN/Creatinine Gfaku8410-09-31 05:24:00 Test Item Value Reference Range Comments Blood urea nitrogen/creatinine mass ratio (test code = 3.9 1020 34047-7) Estimated GFR (Non- Lmkdksju4935-33-70 05:24:00 Test Item Value Reference Range Comments Estimated glomerular filtration rate (GFR) non- > 60 >60 Guamanian (test code = 13764-2) Reference Range: > or = 60 Units: mL/min/1.73 m2 Original MDRD Study Group Equation UsedEstimated GFR ()2017-08-06 05:24:00 Test Item Value Reference Range Comments Estimated glomerular filtration rate (GFR) > 60 >60 Guamanian (test code = 48205-5) Reference Range: > or = 60 Units: mL/min/1.73 m2 Original MDRD Study Group Equation UsedSodium Ocpln9170-09-98 05:24:00 Test Item Value Reference Range Comments Serum or plasma sodium measurement (mass or 139 136- 145 moles/volume) (test code = 2951-2) Potassium Uutje0807-01-22 05:24:00 Test Item Value Reference Range Comments Serum or plasma potassium measurement (moles/volume) 3.2 3.5-5.1 (test code = 2823-3) Chloride Sjziv9472-68-98 05:24:00 Test Item Value Reference Range Comments Serum or plasma chloride measurement (moles/volume) 106 98-107 (test code = 2075-0) Carbon Dioxide Issbs5259-15-06 05:24:00 Test Item Value Reference Range Comments Serum or plasma total carbon dioxide measurement 25 21-32 (moles/volume) (test code = 2028-9) Anion Jae2216-32-10 05:24:00 Test Item Value Reference Range Comments Serum or plasma anion gap (test code = 82260-4) 8.0 4-16 Calculated Blagefdqyh7977-04-12 05:24:00 Test Item Value Reference Range Comments Osmolality of Serum or Plasma by calculation (test 275 280-300 code = 82833-0) Calcium Yvxtw0919-41-09 05:24:00 Test Item Value Reference Range Comments Serum or plasma calcium measurement (mass/volume) 7.3 8.5-10.1 (test code = 24150-7) Blood Smear Comment 19:55:00 Test Item Value Reference Range Comments SMEAR REVIEW (test code = Results verified by smear 8251-1) review Ova & Parasite Result 17:37:00 Test Item Value Reference Range Comments Stool ova and parasites No ova, cysts, or parasites . identification by concentration seen. One negative specimen (test code = 36553-8) does not rule out the possibility of a parasitic infection. Performed at: [facility] [employer] [id number] Rn Telemetry: Eda Tineo MD, Phone: [phone] Performed at: [facility] [id number] Rn Telemetry: Chet Ochoa MD, Phone: [phone] Stool Ova & Hmvwtfoln6297-06-53 17:37:00 Test Item Value Reference Range Comments Examination of specimen for ova and parasites Final report . (test code = 673-4) These results were obtained using wet preparation(s) and trichrome stained smear. This test does notinclude testing for Cryptosporidium parvum, Cyclospora, or Microsporidia.Thyroid Stim Hormone, Ultra Mddbfvr8168-08-22 06:10:00 Test Item Value Reference Range Comments Serum or plasma thyrotropin measurement (units/volume) 1.060 0.358-3.740 (test code = 3016-3) Total Oripspn0935-62-26 06:05:00 Test Item Value Reference Range Comments Serum or plasma protein measurement (mass/volume) 4.6 6.4-8.2 (test code = 2885-2) TECH REVIEWED JDOQBSOvbupyr0971-51-00 06:05:00 Test Item Value Reference Range Comments Serum or plasma albumin measurement (mass/volume) 2.2 3.5-5.0 (test code = 1751-7) Total Xpmyobxlw2082-47-69 06:05:00 Test Item Value Reference Range Comments Serum or plasma total bilirubin measurement 0.6 0.2- 1.0 (mass/volume) (test code = 1975-2) Aspartate Amino Transf (AST/SGOT)2017-08-03 06:05:00 Test Item Value Reference Range Comments Serum or plasma aspartate aminotransferase measurement 16 15-37 (enzymatic activity/volume) (test code = 1920-8) Alanine Aminotransferase (ALT/SGPT)2017-08-03 06:05:00 Test Item Value Reference Range Comments Serum or plasma alanine aminotransferase measurement 11 13-61 (enzymatic activity/volume) (test code = 1742-6) Alkaline Auobuzrnjva3046-89-11 06:05:00 Test Item Value Reference Range Comments Serum or plasma alkaline phosphatase measurement 63 50-136 (enzymatic activity/volume) (test code = 6768-6) Total Creatine Mhjftx9315-72-72 01:25:00 Test Item Value Reference Range Comments Serum or plasma creatine kinase measurement (enzymatic 179 21-215 activity/volume) (test code = 2157-6) Troponin F1131-85-40 01:25:00 Test Item Value Reference Range Comments Serum or plasma troponin i.cardiac measurement 3.150 0 .000-0.045 (mass/volume) (test code = 16968-3) RESULTS CALLED AND CORRECTLY READ BACK BY GINETTE ARCE AT 0123 FOR YAHAIRA ABDI MR# [id number] O9l9140-40-54 10:28:00 Test Item Value Reference Range Comments Hemoglobin A1c measurement (test code = 79267-6) 5.7 4.0-6.0 Magnesium Yrhir3494-87-82 08:43:00 Test Item Value Reference Range Comments Serum or plasma ionized magnesium measurement 1.9 1. 8-2.4 (mass/volume) (test code = 63295-4) Cholesterol Nkhfy6789-37-76 08:43:00 Test Item Value Reference Range Comments Serum or plasma cholesterol measurement (mass/volume) 96 0-200 (test code = 2093-3) Triglycerides Xyarn1783-98-13 08:43:00 Test Item Value Reference Range Comments Serum or plasma triglyceride measurement 81 0-149 (moles/volume) (test code = 41485-5) LDL Chucpqncwyo7437-29-30 08:43:00 Test Item Value Reference Range Comments Serum or plasma cholesterol in LDL measurement 56 0 -130 (mass/volume) (test code = 2089-1) HDL Jnyeqyfjpfm2029-86-34 08:43:00 Test Item Value Reference Range Comments Serum or plasma cholesterol in HDL measurement 24 4 0-59 (mass/volume) (test code = 2085-9) VLDL Vqpkeeaebrm1847-38-55 08:43:00 Test Item Value Reference Range Comments Serum or plasma cholesterol in VLDL measurement 16 (mass/volume) (test code = 2091-7) Coronary Heart Disease Risk Dmamu9313-80-58 08:43:00 Test Item Value Reference Range Comments Serum or plasma cardiac heart disease risk ratio (test 4.00 code = 35270-7) NATIONAL CHOLESTEROL GUIDELINES [facility] ([facility]) guidelines for classificaton, testing and management of cholesterol levels in adults over 20 years of age. This new classification creates three categories of risk for coronary heart disease, regardless of age or sex, according to total and LDL cholesterols levels: Based on total cholesterol level Desirable <200 mg/dlBorderline-high 200-239 mg/dl High >=240 mg/dl Based on cholesterol ratio CHD RISK CHOL/HDL RATIO MALE FEMALE 0.5 x Average 3.4 3.3 1.0 xAverage 5.0 4.4 2.0 x Average 9.6 7.1 3.0 x Average 13.5 11.0Total Iron Binding Rfxfxuns4879-96-59 08:42:00 Test Item Value Reference Range Comments Serum or plasma iron binding capacity measurement 257 250-450 (mass/volume) (test code = 2500-7) Percent Iron Gfgwlqnqgr9573-46-08 08:42:00 Test Item Value Reference Range Comments Serum or plasma iron saturation measurement (mass 13.6 20-50 fraction) (test code = 2502-3) Unsaturated Iron Fygxdar8080-87-25 08:42:00 Test Item Value Reference Range Comments Unsaturated iron binding capacity measurement (test 222 200-280 code = 2501-5) Ovfjcwez2456-40-26 08:42:00 Test Item Value Reference Range Comments Serum or plasma ferritin measurement (mass/volume) 6.5 8.0-388.0 (test code = 2276-4) Iron Zmssq5791-03-52 08:42:00 Test Item Value Reference Range Comments Serum or plasma iron measurement (mass/volume) (test 35 50-170 code = 2498-4) Clostridium difficile Toxin (PCR)2017-08-02 07:34:00 Test Item Value Reference Range Comments Clostridium difficile detection by polymerase chain NEGATIVE NEGATIVE reaction (test code = 31629-5) Clostridium difficile 546-VDS7-E86362-01-29 07:34:00 Test Item Value Reference Range Comments Stool Clostridium difficile toxin genes PRESUMPTIVE NEGATIVE PRE S NEG detection by probe and target amplification method (test code = 49759-6) Urine ZUZ4988-04-42 00:16:00 Test Item Value Reference Range Comments Urine sediment leukocyte count by microscopy 0-5 0-5 (number/high power field) (test code = 5821-4) Urine Epithelial Ilrrv2819-62-82 00:16:00 Test Item Value Reference Range Comments Urine sediment epithelial cell count by microscopy TRACE NONE SEEN (number/low power field) (test code = 27385-7) Urine Rujugorw6767-24-08 00:16:00 Test Item Value Reference Range Comments Crystals detection in urine sediment by light 2+ AMORPHOUS NO NE microscopy (test code = 71792-5) Urine Hgoozmut9279-92-93 00:16:00 Test Item Value Reference Range Comments Bacteria detection in urine sediment by light NONE SEEN NO NE,TRACE microscopy (test code = 18427-6) Urine HCG, Xcuzmxzrwuu6169-47-66 00:12:00 Test Item Value Reference Range Comments Random urine human chorionic gonadotropin (hCG) NEGATIVE NEGATIVE detection (test code = 2106-3) Urine Collection Wwsn0763-39-09 00:09:00 Test Item Value Reference Range Comments UA (urinalysis) (test code = 71460-9) URN,CC Urine Fojoh7474-67-99 00:09:00 Test Item Value Reference Range Comments Urine color determination (test code = 5778-6) YELLOW Y ELLOW Urine Detkhlttno7176-66-65 00:09:00 Test Item Value Reference Range Comments Urine appearance determination (test code = 5767-9) CLOUDY CLEAR Urine Glucose (UA)2017-08-02 00:09:00 Test Item Value Reference Range Comments Urine glucose detection by test strip (test code = NEGATIVE NEGATIVE 40362-0) Urine Lelnekask6966-07-12 00:09:00 Test Item Value Reference Range Comments Urine total bilirubin detection by test strip (test NEGATIVE NEGATIVE code = 5770-3) Urine Puhpjqf5334-92-24 00:09:00 Test Item Value Reference Range Comments Urine ketones detection by test strip (test code = NEGATIVE NEGATIVE 2514-8) Urine Specific Fdouiai2339-65-16 00:09:00 Test Item Value Reference Range Comments Specific gravity of Urine by Refractometry automated 1.022 1.010-1.025 (test code = 01864-1) Urine Occult Ywoaa5104-82-56 00:09:00 Test Item Value Reference Range Comments Urine erythrocytes detection (test code = 30154-6) NEGATIVE NEG, TRACE Urine cV1908-59-36 00:09:00 Test Item Value Reference Range Comments Urine pH measurement (test code = 2756-5) 5.0 5.0-7. 5 Urine Varfcgt0997-26-69 00:09:00 Test Item Value Reference Range Comments Urine protein detection by test strip (test code = 100 NEG, TRACE 91649-6) Urine Mdeoxtxleyka3101-50-17 00:09:00 Test Item Value Reference Range Comments Urine urobilinogen measurement (test code = 45798-8) 0.2 >0.2 Urine Glazqsj0762-89-48 00:09:00 Test Item Value Reference Range Comments Urine nitrite detection (test code = 52834-8) NEGATIVE NE GATIVE Urine Leukocyte Sstxpzfv3803-84-06 00:09:00 Test Item Value Reference Range Comments Leukocyte esterase ur dipstick (test code = 5799-2) NEGATIVE NEG, TRACE Prothrombin Hoge6193-89-98 00:00:00 Test Item Value Reference Range Comments Blood prothrombin time (PT) by coagulation assay (test 10.9 9.6-11.2 code = 5964-2) Prothromb Time International Rdzdb7377-33-52 00:00:00 Test Item Value Reference Range Comments INR in Platelet poor plasma by Coagulation assay (test 1.0 0.9-1.0 code = 6301-6) INR values are recommended for outpatient coumadin monitoringPartial Thromboplastin Time - Ceek4015-28-68 00:00:00 Test Item Value Reference Range Comments Activated partial thromboplastin time (aPTT) in 17.5 23.7-30.0 platelet poor plasma bycoagulation assay (test code = 19961-0) CALLED HARVEY BULLOCK [address] [facility] RESULT VERIFIED BY REPEAT ANALYSISStool Occult Hwkiq5714-65-46 23:42:00 Test Item Value Reference Range Comments Stool occult blood (test code = 2335-8) POSITIVE NEGATIVE Qygcae6369-40-85 23:24:00 Test Item Value Reference Range Comments Serum or plasma lipase measurement (enzymatic 59 73 -393 activity/volume) (test code = 3040-3) Neutrophils (%) (Auto)2017-08-01 23:22:00 Test Item Value Reference Range Comments Neutrophils seg % bld (test code = 29562-6) 77.8 42.0 -75.0 Lymphocytes (%) (Auto)2017-08-01 23:22:00 Test Item Value Reference Range Comments Automated lymphocyte count as percentage of total 17.9 20.0-51.0 leukocytes (test code = 99183-7) Monocytes (%) (Auto)2017-08-01 23:22:00 Test Item Value Reference Range Comments Levy % (test code = 5905-5) 3.8 3.5-12.0 Eosinophils (%) (Auto)2017-08-01 23:22:00 Test Item Value Reference Range Comments Eos % (test code = 713-8) 0.4 0.0-2.0 Basophils (%) (Auto)2017-08-01 23:22:00 Test Item Value Reference Range Comments Baso % (test code = 706-2) 0.1 0.0-1.0 Neutrophils # (Auto)2017-08-01 23:22:00 Test Item Value Reference Range Comments Absolute neutrophil count (test code = 751-8) 13.1 1. 4-6.5 Lymphocytes # (Auto)2017-08-01 23:22:00 Test Item Value Reference Range Comments Absolute lymphocyte count (test code = 73220-7) 3.0 1.2-3.4 Monocytes # (Auto)2017-08-01 23:22:00 Test Item Value Reference Range Comments Absolute monocyte count (test code = 742-7) 0.7 0.1- 0.6 Eosinophils # (Auto)2017-08-01 23:22:00 Test Item Value Reference Range Comments Blood eosinophils count (number/volume) (test code = 0.1 0.0-0.5 70813-6) Basophils # (Auto)2017-08-01 23:22:00 Test Item Value Reference Range Comments Blood basophils count (number/volume) (test code = 0.0 0.0-0.1 30321-4) Microcytosis (auto)2017-08-01 23:22:00 Test Item Value Reference Range Comments Automated blood microcytes detection (test code = 1+ NONE 82800-8) Hypochromasia (auto)2017-08-01 23:22:00 Test Item Value Reference Range Comments Automated blood hypochromia detection (test code = 3+ NONE 88562-6) PROTEIN TOTAL, QN, 24-HR URINE Test Item Value Reference Range Comments PROTEIN,TOTAL,URINE (test code = 2888-6) 14.7 MG/DL PROT,24HR CALCULATED (test code = 2889-4) 221 MG/24 HR 30-150 HIV AG/AB WITH REFLEX Test Item Value Reference Range Comments HIV SCREEN 4TH GENERATION WRFX (test code = NR NON REACTIVE NON REACTIVE 35349-9) RPR Test Item Value Reference Range Comments RPR (test code = 53912-1) NR NON REACTIVE NON RE ACTIVE PORTABLE CHEST APPAT NAME: YAHAIRA ABDI : 1985[address] SEX: FPHONE: AGE: 32PRIORITY:ERLOCATION: CCU ORD PHY: MANA CORNELIUS MDMR#: [id number] PT CLASS: ADM INDATE OF EXAM: 08/06/2017EXAMINATION: PORTABLE CHEST APFrontal view of the chest COMPARISON: NoneINDICATION: Attempted central line placement.FINDINGS: Clear lungs. The heart is normal size. The mediastinal vasculature and hilar structuresare unremarkable.IMPRESSION:1. No acute cardiopulmonary disease. No pneumothorax.Final report electronically signed by: Servando Dubose MDINTERPRETING PHYSICIAN: EMILIANO DUBOSE MDThis document has been electronically signed by EMILIANO DUBOSE MD on 08/06/2017 03:55:14.Order # [id number] ECHO COMPLETE W/COLORTransthoracic Echocardiography Report (TTE)ProcedureType of StudyTTE procedure:2D ECHO COMPLETE W/COL OR.Procedure DateDate: 08/02/2017 Start: 12:42 PMContrast Medium: Optison. Amount - 2 mlHeight: 59 inches Weight: 282.4 pounds BSA: 2.14 m\S\2 BMI: 57.04 kg/m\S\6BbrgtmisrgvDfmaxyk7G echo is of reducedquality due to a poor acoustic window. 3ml of optison was used toenhance endocardial border definitions and doppler signals.The left ventricle is normal size.Normal left ventricular wall thickness.The left ventricular systolic function is normal.The ejection fraction is 55-60%.There are no major wall motion abnormalities.Signature Electronically signed by Jaskaran Suggs M.D. (Interpreting physician) on08/02/2017 at 05:21 PM --FindingsMitral ValveThe mitral valve is flexible.Mild mitral regurgitation is present.Aortic ValveThe aortic root isnormal in size.The aortic valve is flexible.The aortic valve is trileaflet.No evidence of significant aortic valve regurgitation.There is no significant aortic stenosis.Tricuspid ValveThe tricuspid valve is flexible.PA pressures could not be calculated due to absence of a reliable tricuspid regurgitationjet.Pulmonic ValveThe pulmonic valve is not well visualized.Left AtriumThe left atrium is normal in size.Left VentricleThe left ventricle is normal size.Normal left ventricular wall thickness.The left ventricular systolic function is normal.The ejection fraction is 55-60%.There are no major wall motion abnormalities.Right AtriumThe right atrium is normal in size.Right VentricleThe right ventricle is normal in size and function.Pericardial EffusionNo evidence of pericardial effusion.Pleural EffusionNo evidence of pleural effusion.ThrombusNo thrombus seen.M-Mode/2D Measurements & CalculationsLVDiastolic Dimension: 4.12 LV Systolic Dimension: 2.36 cm AO Root Dimension: 2.87 cmcm LV Volume Diastolic: 75.21 mlLV FS:42.7 % LV Volume Systolic: 1 9.3 mlLV PW Diastolic: 1.35 cm LV EDV/LV EDV Index: 75.21 ml/35Septum Diastolic: 1.78 cm m\S\2LV ESV/LV ESV Index: 19.3 ml/9 m\S\2EF Calculated: 74.3 %LVOT: 2.01 cmDoppler Measurements &CalculationsMV Peak E-Wave: 1.01 m/s AV Peak Velocity: 2.13 m/s LVOT Peak Velocity: 1.8 m/sMV Peak A- Wave: 1.18 m/s AV Peak Gradient: 18.12 mmHg LVOT Mean Velocity: 1.3 m/sMV E/A Ratio: ` AV Mean Velocity: 1.35 m/s LVOT Peak Gradient: 10.62 mmHgMV Peak Gradient: 4.07 mmHg AV Mean Gradient: 8.86 mmHg LVOT Mean Gradient: 8.3 mmHgAV VTI: 37.71 cm Estimated RVSP: 33.25 mmHgMV Deceleration Time: 235.5 AV Area (Continuity):3.06 Estimated RAP:10 mmHgmsec cm\S\2MV P1/2t: 68.3 msecMVA by PHT:3.22 cm\S\2 LVOT VTI: 36.34 cm TR Velocity:2.38 m/sTR Gradient:22.69 mmHgEstimated PASP: 32.69 mmHg PVPeak Velocity: 1.79 m/sPV Peak Gradient: 12.77 mmHgMR Velocity: 3.65 m/sMR VTI: 81.93 cm2D ECHO COMPLETE W/COLORECHOCARDIOGRAPHIC REPORTNAME: YAHAIRA ABDI ROOM: [facility] 375N: [id number] PT TYPE: ADM INDOB: 1985 32 F AA ACCT NUMBER: [id number] DATE: 08/02/17Transthoracic Echocardiography Report (TTE)ProcedureType of StudyTTE procedure:2D ECHO COMPLETE W/COLOR.Procedure DateDate: 08/02/2017 Start: 12:42 PMContrast Medium: Optison. Amount - 2 mlHeight: 59 inches Weight: 282.4 pounds BSA: 2.14 m 2 BMI: 57.04 kg/m 7ImegzszfxnoMvcdkdz6I echo is of reduced quality due to a poor acoustic window. 3ml of optison was used toenhance endocardial border definitions and doppler signals.The left ventricle is normal size.Normal left ventricular wall thickness.The left ventricular systolic function is normal.The ejection fraction is 55-60%.There are no major wall motion abnormalities.Signature---- Elec tronically signed Emeka Suggs M.D. (Interpreting physician) on08/02/2017 at 05:21 PM FindingsMitral ValveThe mitral valve is flexible.Mild mitral regurgitation is present.Aortic ValveThe aortic root is normal in size.The aortic valve is flexible.The aortic valve is trileaflet.No evidence of significant aortic valve regurgitation.There is no significant aortic stenosis.Tricuspid ValveThe tricuspid valve is flexible.PA pressures couldnot be calculated due to absence of a reliable tricuspid regurgitationjet.Pulmonic ValveThe pulmonicvalve is not well visualized.Left AtriumThe left atrium is normal in size.Left VentricleThe left ventricle is normal size.Normal left ventricular wall thickness.The left ventricular systolic function is normal.The ejection fraction is 55-60%.There are no major wall motion abnormalities.Right AtriumTheright atrium is normal in size.Right VentricleThe right ventricle is normal in size and function.Pericardial EffusionNo evidence of pericardial effusion.Pleural EffusionNo evidence of pleural effusion.ThrombusNo thrombus seen.M-Mode/2D Measurements CalculationsLV Diastolic Dimension: 4.12 LV Systolic Dimension: 2.36 cm AO Root Dimension: 2.87 cmcm LV Volume Diastolic: 75.21 mlLV FS:42.7 % LV Volume Systolic: 19.3 mlLV PW Diastolic: 1.35 cmLV EDV/LV EDV Index: 75.21 ml/35Septum Diastolic: 1.78 cm m 2LV ESV/LV ESV Index: 19.3 ml/9 m 2EF Calculated: 74.3 %LVOT: 2.01 cmDoppler Measurements CalculationsMV Peak E-Wave: 1.01 m/s AV Peak Velocity: 2.13 m/s LVOT Peak Velocity: 1.8 m/sMV Peak A-Wave: 1.18 m/s AV Peak Gradient: 18.12 mmHg LVOT Mean Velocity: 1.3 m/sMV E/A Ratio: ` AV Mean Velocity: 1.35 m/s LVOT Peak Gradient: 10.62 mmHgMV Peak Gradient: 4.07 mmHg AV Mean Gradient: 8.86 mmHg LVOT Mean Gradient: 8.3 mmHgAV VTI: 37.71 cm Estimated RVSP: 33.25 mmHgMV Deceleration Time: 235.5 AV Area (Continuity):3.06 Estimated RAP:10 mmHgmsec cm 2MVP1/2t: 68.3 msecMVA by PHT:3.22 cm 2 LVOT VTI: 36.34 cm TR Velocity:2.38 m/sTRGradient:22.69 mmHgEstimated PASP: 32.69 mmHg PV Peak Velocity: 1.79 m/sPV Peak Gradient: 12.77 mmHgMR Velocity: 3.65 m/sMR VTI: 81.93 cmPORTABLE CHEST APPAT NAME: YAHAIRA ABDI : 1985[address]: [address] SEX: FPHONE: AGE: 32PRIORITY: ERLOCATION: CCU ORD [facility] [id number]#: [id number] PT CLASS: ADM INDATE OF EXAM: 08/01/2017EXAMINATION: PORTABLE CHEST APPORTABLE UPRIGHT AP CHEST: 08/02/2017 1:03 AMHISTORY: Anemia.IMPRESSION:No prior chest radiographs are available for c omparison.The lungs appear clear. No acute airspace disease or pleural effusion. No pneumothorax.Normal cardiomediastinal silhouette. No acute osseous abnormalities. Obesity.Final report electronicallysigned by: Albaro Schwarz MDINTERPRETING PHYSICIAN: ALBARO SCHWARZ MDThis document has been electro nically signed by ALBARO SCHWARZ MD on 08/02/2017 01:03:42.Order # [id number] STEWART TECHELECTROCARDIOGRAPHIC REPORTNAME: YAHAIRA ABDI ROOM: [place] [address]MRN: [id number] PT TYPE: ADM INDOB: 1985 32 F AA ACCT NUMBER: [id number] DATE: 08/02/17Heart Rate: 109 bpmPRInterval: 124 msQRSDuration: 92 msQTInterval: 348 msQTc: 433 msPAxis: 61QrsAxis: 16TAxis: -135See scannedECG in mEgo for ED Physician interpreted copy. Assessments Condition Name Status Diagnosis Date Treating Clinici an GI bleed Unknown 21 weeks gestation of Unknown Anemia Unknown ODETTE (obstructive sleep apnea) Unknown Pre-existing essential htn comp , Active unsp trimester Anxiety disorder, unspecified Active Morbid (severe) obesity due to excess Active calories Body mass index (BMI) 60.0-69.9, adult Active Sleep apnea, unspecified Active Morbid (severe) obesity due to excess Active calories Body mass index (BMI) 60.0-69.9, adult Active Pre-existing essential htn comp , Active unsp trimester Pre-existing essential htn comp , Active unsp trimester Sleep apnea, unspecified Active Morbid (severe) obesity due to excess Active calories Encounter for test, result Active positive [id number] AMADO Estrada Encounters Start End Encounter Admission Attending Care Care Encounter Date/Time Date/Time Type Type Clinicians Facility Department ID 2020-04-29 2020-04-29 Appointment STUART Isaac [facility] [id number] 10:00:00 08:00:21 ; Gold Isaac MD 2020-03-15 2020-03-19 Inpatient U [facility] [id number] 04:16:00 16:38:00 [place] 2020-03-15 2020-03-19 Inpatient [facility] [id number] 04:16:00 16:38:00 2020-03-15 2020-03-16 Inpatient [facility] [id number] 22:47:00 00:32:00 2020-03-15 2020-03-15 Outpatient [facility] [id number] 03:11:22 04:15:00 2020-03-15 2020-03-15 Outpatient X ELROY [facility] [id number] 03:11:22 04:15:00 ANNA WRIGHT 2020-02-26 2020-02-26 [facility] [id number] 13:30:00 13:30:00 [facility] [id number] s [id number] [facility], 2020-02-07 2020-02-07 Outpatient [facility] [id number] 15:45:00 15:45:00 Fred Children [id number] and [id number] [facility], 2020-01-10 2020-01-10 [facility] [id number] 14:00:00 14:00:00 ; Gold Isaac MD 2019-12-22 2019-12-22 [facility] [id number] 11:15:00 11:15:00 Fred Children???s [id number] and [id number] [facility] [id number] Clini 2017-08-02 2017-08-06 Discharged [facility] [place] [id number] 00:29:00 16:50:[address] 2017-08-05 2017-08-05 Outpatient [facility] [id number] 09:02:26 09:02:36 [id number] 2017-08-05 2017-08-05 Outpatient [facility] [id number] 00:00:00 00:00:00 _[id number] Payers Payer Name Policy Type Policy Number Effective Date Expiration D ate [place]ID [place] [id number] MEDICAIDMEDICAID [id number] [place] [id number] e for all [phone] d Medicaid [place] Access [id number] 2017 201 02-03-28 00:00:00 00:00:00 [place] [id number] 2017 00:00:00 Plan of Treatment Planned Activity Planned Date Details Comments Future Scheduled Test [code = ] Future Scheduled Test [code = ] Future Scheduled Test [code = ] Future Scheduled Test [code = ] Future Scheduled Test [code = ] Future Scheduled Test [code = ] Instructions Discharge Instr - Other Orders H Dennis hwang LPC - 03/15/2020 7:45 A M EDTSUBSTANCE USE/ALCOHOL USE DIS [facility] [address] [place] [address]Ezklv: [phone] Line: [phone] Served: [facility], [place], [place], [place], [facility] nover, [place], [place], [place], Isaac , Jose D, Riki, Deepthi, Yenny, Cl, Ho, [place], [place], Damon, Rickie, [place], [place], Tao , [place]s, Jose, Ngoc, MarcoLakeview Yanni EDUCATION SALES CONSULTANT, CSACCoordinator Substance [id number] Electron ically signed by Dennis Liao, JOSE C at 03/15/2020 7:45 AM EDTAdditional Instructions Paige Vasquez MD - 03/19/2020Recommend to stop taking ASA or naproxen, aleve, ibuprofe n until re-evaluated by primary care doc tor or BECK TENDER.Recommend to follow with BECK TENDER for better blood pressure control.Recommend to come back t o ER if low blood pressure or recur blee ding Social History Social Habit Start Date Stop Date Comments ASSERTION 2019-10-30 00:00:00 Tobacco use and exposure 2020-03-16 00:00:00 2020-03-16 00:00:00 Alcohol intake 2020-03-16 00:00:00 2020-03-16 00:00:00 Smoking Status Start Date Stop Date History of tobacco use Former smoker 2020-03-16 00:00:00 2020-03-16 00:00:00 Vital Signs Vital Name Observation Time Observation Value Comments Systolic blood pressure 2020-03-19 15:33:00 155 mm[Hg] Diastolic blood pressure 2020-03-19 15:33:00 83 mm[Hg] Heart rate 2020-03-19 15:33:00 88 /min Body temperature 2020-03-19 15:33:00 36.94 Thais Respiratory rate 2020-03-19 15:33:00 18 /min Oxygen saturation in Arterial blood by 2020-03-19 15:33:00 100 % Pulse oximetry Body weight 2020-03-18 11:43:00 102.9 kg BMI 2020-03-18 11:43:00 44.30 kg/m2 Body height 2020-03-17 18:53:00 152.4 cm WEIGHT 2017-08-02 00:29:00 128.658967 kg HEIGHT 2017-08-02 00:29:00 149.541371 cm Hospital Discharge Instructions NameDatesDetailsInstructions not documentedDischarge Instr - Other Orders Dennis Liao LPC - 03/15/2020 7:45 AM EDTSUBSTANCE USE/ALCOHOLUSE DISORDER FOLLOW UP [facility] [address] [place] [address] Crisis Line: [phone] [facility] Served: [facility], [place], [place],[facility], [place], [place], [place], Isaac, Jose D, Riki, Deepthi, Yenny, Cl, [place], [place]idra, Bean, Damon, Hans Damian, Tao Crawley [place], [place], [place], Marco Liao EDUCATION SALES CONSULTANT, [facility] Coordinator Substance Abuse [phone] Pager [phone] Additional Instructions Paige Vasquez MD - 03/19/2020Recommend to stop taking ASA or naproxen, aleve, ibuprofen until re- evaluated by primary care doctor or BECK TENDER. Recommend to follow with BECK TENDER for better blood pressure control. Recommend to come back to ER if low blood pressure or recur bleeding documented in this encounter NameDatesDetailsInstructions not documentedDischarge Instructions Discharge Instructions Activity: Up ad lele Discharge Instructions Patient Instructions instructed not to go through a metal detector for 30 days, when the metal clip passes through the colon Take medications as prescribed Follow-up care appointments as scheduled. Follow-up with Dr. Garcia in 2 weeks. Need to come to ER if any signs of bleeding Diet: Advance As Tolerated Regular Activity: Up ad lele
[2020-05-14 16:34] LABS: HEMATOCRIT 30.6 % (36.0-47.0); HEMOGLOBIN 9.9 g/dL (12.0-15.5); MEAN CORPUSCULAR HEMOGLOBIN 26.2 pg (27.0-33.4); MEAN CORPUSCULAR HGB CONC 32.5 g/dL (32.0-36.0); MEAN CORPUSCULAR VOLUME 81 fl (80-97); PLATELET COUNT 282 10^3/uL (150-450); RED BLOOD COUNT 3.79 10^6/uL (3.72-5.28); RED CELL DISTRIBUTION WIDTH 17.8 % (11.5-14.0); WHITE BLOOD COUNT 10.3 10^3/uL (4.0-10.5)
[2020-05-14 17:05] LABS: ALBUMIN 3.6 g/dL (3.5-5.0); ALKALINE PHOSPHATASE 166 U/L (38-126); ANION GAP 8 (5-19); ASPARTATE AMINO TRANSFERASE 18 U/L (14-36); BILIRUBIN,DIRECT 0.1 mg/dL (0.0-0.4); BILIRUBIN,TOTAL 0.3 mg/dL (0.2-1.3); BLOOD UREA NITROGEN 8 mg/dL (7-20); CALCIUM 9.5 mg/dL (8.4-10.2); CARBON DIOXIDE 22 mmol/L (22-30); CHLORIDE 106 mmol/L (98-107); GLUCOSE 85 mg/dL (75-110); POTASSIUM 4.1 mmol/L (3.6-5.0); TOTAL PROTEIN 7.1 g/dL (6.3-8.2); URIC ACID 4.2 mg/dL (2.5-6.2)
[2020-05-14 17:45] LABS: APPEARANCE,URINE CLEAR; BILIRUBIN,URINE NEGATIVE (NEGATIVE); COLOR,URINE YELLOW; GLUCOSE, URINE NEGATIVE (NEGATIVE); KETONES,URINE TRACE mg/dL (NEGATIVE); LEUKOCYTE ESTERASE,URINE NEGATIVE (NEGATIVE); NITRITE,URINE NEGATIVE (NEGATIVE); PROTEIN,URINE NEGATIVE (NEGATIVE); UROBILINOGEN,URINE NEGATIVE mg/dL (<2.0)
[2020-05-14 18:06] LABS: URINE AMPHETAMINES SCREEN NEGATIVE; URINE BARBITURATES SCREEN NEGATIVE; URINE BENZODIAZEPINES SCREEN NEGATIVE; URINE COCAINE SCREEN NEGATIVE; URINE MARIJUANA (THC) SCREEN NEGATIVE; URINE METHADONE SCREEN NEGATIVE; URINE PHENCYCLIDINE SCREEN NEGATIVE
[2020-05-14 18:18] LABS: UR PRO/CREAT RATIO RESULT 0.2 mg/mg (0.0-0.2); URINE CREATININE 57.9 mg/dL (16-327); URINE PROTEIN 10.8 mg/dL (<12)
== END 2020-05-14 17:27 | disposition home or self-care (01) ==
LOC: LC 15:35
PROVIDERS: ATTEND Obstetrics & Gynecology
DX: O13.3 Gestational [pregnancy-induced] hypertension without significant proteinuria, third trimester (principal); Z3A.30 30 weeks gestation of pregnancy
CPT/HCPCS: 36415; 80053; 80307; 81001; 82570; 84156; 84550; 85027

== ENCOUNTER 2020-05-20 15:50 | Outpatient (CLI) | payer MEDICAID ==
[2020-05-20 16:35] LABS: HEMATOCRIT 31.2 % (36.0-47.0); HEMOGLOBIN 10.1 g/dL (12.0-15.5); MEAN CORPUSCULAR HEMOGLOBIN 26.4 pg (27.0-33.4); MEAN CORPUSCULAR HGB CONC 32.4 g/dL (32.0-36.0); MEAN CORPUSCULAR VOLUME 82 fl (80-97); PLATELET COUNT 282 10^3/uL (150-450); RED BLOOD COUNT 3.83 10^6/uL (3.72-5.28); RED CELL DISTRIBUTION WIDTH 17.8 % (11.5-14.0); WHITE BLOOD COUNT 10.8 10^3/uL (4.0-10.5)
[2020-05-20 16:56] LABS: ALBUMIN 3.7 g/dL (3.5-5.0); ALKALINE PHOSPHATASE 169 U/L (38-126); ANION GAP 10 (5-19); ASPARTATE AMINO TRANSFERASE 17 U/L (14-36); BILIRUBIN,TOTAL 0.2 mg/dL (0.2-1.3); BLOOD UREA NITROGEN 9 mg/dL (7-20); CALCIUM 9.8 mg/dL (8.4-10.2); CARBON DIOXIDE 20 mmol/L (22-30); CHLORIDE 104 mmol/L (98-107); GLUCOSE 83 mg/dL (75-110); POTASSIUM 4.3 mmol/L (3.6-5.0); TOTAL PROTEIN 7.1 g/dL (6.3-8.2); URIC ACID 4.1 mg/dL (2.5-6.2)
[2020-05-20 17:00] LABS: APPEARANCE,URINE CLOUDY; BILIRUBIN,URINE NEGATIVE (NEGATIVE); COLOR,URINE YELLOW; GLUCOSE, URINE NEGATIVE (NEGATIVE); KETONES,URINE NEGATIVE (NEGATIVE); LEUKOCYTE ESTERASE,URINE TRACE (NEGATIVE); NITRITE,URINE NEGATIVE (NEGATIVE); PROTEIN,URINE 30 mg/dL (NEGATIVE); URINE SPECIFIC GRAVITY 1.024
[2020-05-20 17:19] LABS: URINE AMPHETAMINES SCREEN NEGATIVE; URINE BARBITURATES SCREEN NEGATIVE; URINE BENZODIAZEPINES SCREEN NEGATIVE; URINE COCAINE SCREEN NEGATIVE; URINE METHADONE SCREEN NEGATIVE; URINE PHENCYCLIDINE SCREEN NEGATIVE
[2020-05-20 17:32] LABS: URINE MARIJUANA (THC) SCREEN UNCONFIRMED POSITIVE
[2020-05-20 17:34] LABS: URINE CREATININE 200.1 mg/dL (16-327); URINE PROTEIN 9.9 mg/dL (<12)
== END 2020-05-20 18:06 | disposition home or self-care (01) ==
LOC: LC 15:50 → LR 15:57 → UNDOADMOB 15:57 → LC 18:06 → UNDODISOB 18:06
PROVIDERS: ATTEND Obstetrics & Gynecology
DX: O16.3 Unspecified maternal hypertension, third trimester (principal); Z3A.30 30 weeks gestation of pregnancy
CPT/HCPCS: 36415; 84156; 84550; 82570; 85027; 80053; 81001; 80307; 59899; G0480 ×2; 80349